=== PATIENT | female | born 1940 | race Caucasian/White ===

== ENCOUNTER → 2018-01-02 | Outpatient (CLI) | payer MEDICARE, OTHER ==
[~2018-01-02] MED LIST: ACIDOPHILUS PO; AMBIEN 5MG TABLE5 MG PO; CYMBALTA 60MG60 MG PO; ENDOCET 325 MG-1 TA1 PO; FISH OIL CONC1000 MG PO; FOLIC ACID PO; MELATONIN 0.3MG PO; MVI PO; NITROQUICK0.4 MG SL; NORVASC 5MG5 MG/TAB PO; PREMARIN 0.60.625 MG PO; SINGULAIR10 MG PO; TRICOR 48MG48 MG PO; XANAX0.25 MG PO; ZYRTEC5 MG PO
== END ==
LOC: MC.RAD 12-26 13:00
DX: N64.59 Other signs and symptoms in breast (principal); N63.20 Unspecified lump in the left breast, unspecified quadrant

== ENCOUNTER 2018-05-13 16:08 | Emergency (ER) | payer MEDICARE, OTHER ==
[~2018-05-13] VITALS: Ht 170.2 cm; Wt 63.6 kg
[2018-05-13 16:14] VITALS: TEMP 96.6
[2018-05-13 16:25] LABS: BASO % 0.2 % (0.0-2.0); GRAN # 8.5 (1.4-6.5); GRAN % 79.3 % (42.2-75.2); HEMATOCRIT 47.9 % (37.0-47.0); LYMPH # 1.6 (1.2-3.4); LYMPH % 14.8 % (20.0-51.0); MEAN CELL VOLUME 91 fl (80.0-100.0); MEAN CORPUSCULAR HEMOGLOBIN 31 pg (27.0-31.0); MEAN CORPUSCULAR HGB CONC 33 g/dl (33.0-37.0); MEAN PLATELET VOLUME 8.3 fl (7.4-10.4); MONO # 0.5 (0.1-0.6); MONO % 4.9 % (1.7-9.3); PLATELET COUNT 311 K/mm3 (130-400); RED BLOOD COUNT 5.24 M/mm3 (4.10-5.30); REDCELL DISTRIBUTION WIDTH-CV 13.6 % (11.5-14.5)
[2018-05-13 16:45] LABS: ALANINE AMINOTRANSFERASE 25 U/L (9-52); ALBUMIN 4.1 gm/dL (3.5-5.0); ALKALINE PHOSPHATASE 53 U/L (50-136); ANION GAP 11 mmol/L (7-16); AST,SGOT 25 U/L (15-37); BILIRUBIN,TOTAL 0.3 mg/dL (0.0-1.0); BLOOD UREA NITROGEN 19 mg/dL (7-17); CALCIUM 9.7 mg/dL (8.4-10.2); CARBON DIOXIDE 27 mmol/L (22-30); CHLORIDE 93 mmol/L (98-107); CREATININE, serum 0.68 mg/dL (0.52-1.25); GLUCOSE 123 mg/dL (74-106); POTASSIUM 4.6 mmol/L (3.4-5.0); SODIUM 130 mmol/L (137-145); TOTAL PROTEIN 7.6 gm/dL (6.4-8.2)
[2018-05-13 16:56] LABS: TROPONIN-I < 0.012 ng/mL (0.000-0.034)
[2018-05-13] MEDS ORDERED: PREDNISONE10 MG PO (17:44)
[2018-05-13] MEDS ORDERED: OMNICEF 300MG300 MG PO (17:44)
[2018-05-13] MEDS ORDERED: D-2000 90 MG-201 TAB PO (17:45)
[2018-05-13] MEDS ORDERED: ASPIRIN 81M81 MG/TA2 PO (17:46)
[2018-05-13] MEDS ORDERED: REQUIP0.25 MG PO (17:46)
[2018-05-13] MEDS ORDERED: DESYREL 100MG100 MG PO (17:46)
[2018-05-13] MEDS ORDERED: PROAIR HFA0.09 MG/AC IH (17:47)
[2018-05-13] MEDS ORDERED: COLACE 100100 MG/CAP PO (17:47)
[2018-05-13] MEDS ORDERED: MUCINEX 60600 MG/TA1 PO (17:48)
[2018-05-13 18:11] LABS: COLLECTION METHOD CATHETER
[2018-05-13 18:15] LABS: PH 7 (5-8); SQUAMOUS EPITHELIAL 0-2 /hpf; URINE APPEARANCE Clear; URINE BACTERIA None Seen /hpf; URINE BILIRUBIN Negative (NEGATIVE); URINE BLOOD Negative (NEGATIVE); URINE COLOR Straw; URINE GLUCOSE Negative (NEGATIVE); URINE KETONE Negative (NEGATIVE); URINE LEUKOCYTE ESTERASE Negative (NEGATIVE); URINE NITRATE Negative (NEGATIVE); URINE PROTEIN(semi-quant) Negative (NEGATIVE); URINE RBC 0-2 /hpf; URINE UROBILINOGEN Negative (NEGATIVE)
[2018-05-13 19:00] VITALS: BP 136/84; PULSE 101
== END 2018-05-13 19:11 | disposition home or self-care (01) ==
LOC: COL.ER 16:08
PROVIDERS: Emergency Medicine
DX: R20.0 Anesthesia of skin (principal); R00.0 Tachycardia, unspecified; Z79.82 Long term (current) use of aspirin
CPT/HCPCS: J7030; Q9967

== ENCOUNTER → 2019-02-23 | Outpatient (CLI) | payer MEDICARE, OTHER ==
[~2019-02-23] MED LIST changes: +ASPIRIN 81M81 MG/TA2 PO; +COLACE 100100 MG/CAP PO; +D-2000 90 MG-201 TAB PO; +DESYREL 100MG100 MG PO; +MUCINEX 60600 MG/TA1 PO; +OMNICEF 300MG300 MG PO; +PREDNISONE10 MG PO; +PROAIR HFA0.09 MG/AC IH; +REQUIP0.25 MG PO
== END ==
LOC: MC.RAD 13:48
DX: Z12.31 Encounter for screening mammogram for malignant neoplasm of breast (principal)

== ENCOUNTER 2021-04-13 14:36 | Emergency (ER) | payer MEDICARE, OTHER ==
[~2021-04-13] VITALS: Ht 170.2 cm; Wt 57.3 kg
[2021-04-13 15:48] LABS: BASO % 0.4 % (0.0-2.0); EOS # 0.1 (0.0-0.7); EOS % 1.2 % (0-4.0); GRAN # 4.4 (1.4-6.5); GRAN % 56.7 % (42.2-75.2); HEMATOCRIT 41.4 % (37.0-47.0); HEMOGLOBIN 14.5 g/dl (12.5-16.0); LYMPH # 2.6 (1.2-3.4); LYMPH % 33.6 % (20.0-51.0); MEAN CELL VOLUME 88 fl (80.0-100.0); MEAN CORPUSCULAR HEMOGLOBIN 31 pg (27.0-31.0); MEAN CORPUSCULAR HGB CONC 35 g/dl (33.0-37.0); MEAN PLATELET VOLUME 8.6 fl (7.4-10.4); MONO # 0.6 (0.1-0.6); MONO % 7.8 % (1.7-9.3); PLATELET COUNT 232 K/mm3 (130-400); RED BLOOD COUNT 4.69 M/mm3 (4.10-5.30); REDCELL DISTRIBUTION WIDTH-CV 12.7 % (11.5-14.5)
[2021-04-13 16:23] LABS: ALANINE AMINOTRANSFERASE 9 U/L (4-34); ALBUMIN 3.7 gm/dL (3.5-5.0); ALKALINE PHOSPHATASE 53 U/L (50-136); AST,SGOT 22 U/L (15-37); BILIRUBIN,TOTAL 0.2 mg/dL (0.0-1.0); BLOOD UREA NITROGEN 8 mg/dL (7-17); CALCIUM 9.2 mg/dL (8.4-10.2); CARBON DIOXIDE 29 mmol/L (22-30); CHLORIDE 92 mmol/L (98-107); CREATININE, serum 0.48 (0.52-1.25); GLUCOSE 89 mg/dL (74-106); POTASSIUM 3.9 mmol/L (3.4-5.0); TOTAL PROTEIN 6.9 gm/dL (6.4-8.2)
[2021-04-13 16:33] LABS: COLLECTION METHOD CLEAN CATCH
[2021-04-13 16:47] LABS: PH 7 (5-8); SQUAMOUS EPITHELIAL 0-2 /hpf; URINE APPEARANCE Hazy; URINE BACTERIA Rare /hpf; URINE BILIRUBIN Negative (NEGATIVE); URINE BLOOD Negative (NEGATIVE); URINE COLOR Yellow; URINE GLUCOSE Negative (NEGATIVE); URINE KETONE Negative (NEGATIVE); URINE LEUKOCYTE ESTERASE Negative (NEGATIVE); URINE NITRATE Positive (NEGATIVE); URINE PROTEIN(semi-quant) Negative (NEGATIVE); URINE RBC 0-2 /hpf; URINE UROBILINOGEN Negative (NEGATIVE); URINE WBC 0-2 /hpf
[2021-04-13 16:54] LABS: TROPONIN-I < 0.012 ng/mL (0.000-0.035)
[2021-04-13 17:06] LABS: SODIUM 125 mmol/L (137-145)
[2021-04-13 17:07] LABS: ANION GAP 4 mmol/L (7-16)
[2021-04-13 18:33] VITALS: BP 131/81; PULSE 85; TEMP 97.9
== END 2021-04-13 18:33 | disposition home or self-care (01) ==
LOC: COL.ER 14:36
PROVIDERS: Nurse Practitioner Primary Care
DX: E87.1 Hypo-osmolality and hyponatremia (principal); J44.9 Chronic obstructive pulmonary disease, unspecified; M79.7 Fibromyalgia; K59.09 Other constipation; F17.210 Nicotine dependence, cigarettes, uncomplicated; Z79.52 Long term (current) use of systemic steroids; Z79.891 Long term (current) use of opiate analgesic
CPT/HCPCS: Q9967